=== PATIENT | male | born 1995 | race Caucasian/White ===

== ENCOUNTER 2016-06-17 18:08 | Observation (INO) | payer OTHER ==
[~2016-06-17] VITALS: Ht 177.8 cm; Wt 86.0 kg
[~2016-06-17 18:08] MED LIST: ATARAX PO; BUSPAR30 MG PO; LEXAPRO PO; MELATONIN; MUCINEX D ER T1 EACH PO; SEROQUEL; SEROQUEL XR300 MG PO; STRATTERA80 MG PO; WELLBUTRIN PO
[2016-06-17] MEDS ORDERED: BUSPAR30 MG PO (19:28)
[2016-06-17] MEDS ORDERED: PAXIL10 MG PO (19:28)
[2016-06-17] MEDS ORDERED: CATAPRES0.3 MG PO (19:29)
[2016-06-17] MEDS ORDERED: FOCALIN XR30 MG PO (19:29)
[2016-06-17] MEDS ORDERED: NEURONTIN300 MG PO (19:29)
[2016-06-17] MEDS ORDERED: FOCALIN XR15 M1 PO ×2 (19:29)
[2016-06-17] MEDS ORDERED: CATAPRES0.2 MG PO (19:29)
[2016-06-17] MEDS ORDERED: METHADOSE40 MG PO (19:30)
[2016-06-17 21:31] LABS: EOSINOPHIL (%) 4.9 % (0-5); EOSINOPHIL COUNT 0.5 K/uL (0-0.3); HEMATOCRIT 31.7 % (38.0-50.0); IMMATURE GRANULOCYTE (%) 0.2 % (0.0-0.7); IMMATURE GRANULOCYTE COUNT 0.2 K/uL; LYMPHOCYTE COUNT 2.5 K/uL (1.0-2.8); MCH 28.3 PG (29.0-34.0); MCHC 34.1 G/DL (30.0-36.0); MEAN PLAT.VOLUME 8.9 uM^3 (9.0-12.4); MONOCYTE (%) 9.1 % (3-12); NEUTROPHIL (%) 61.8 % (45-76); NEUTROPHIL COUNT 6.5 K/uL (1.8-6.4); PLATELET COUNT 326 K/uL (156-360); RBC DIS.WIDTH-CV 12.6 % (11.8-14.6); RBC DIS.WIDTH-SD 36.9 % (39-53); RED BLOOD COUNT 3.82 M/uL (4.00-5.50); WHITE BLOOD COUNT 10.4 K/uL (4.1-10.2)
[2016-06-17 21:44] LABS: CHLORIDE 100 mEq/L (99-109); POTASSIUM 3.9 mEq/L (3.7-5.4); SODIUM 135 mEq/L (136-147)
[2016-06-17 21:46] LABS: GLUCOSE 82 mg/dL (70-99)
[2016-06-17 21:48] LABS: ANION GAP 12 MEQ/L (2-14); TOTAL BILIRUBIN 0.4 mg/dL (0.0-1.0)
[2016-06-17 21:50] LABS: ALKALINE PHOSPHATASE 129 IU/L (3-129); GFR ESTIMATE (CALCULATED) > 59 mL/min/
[2016-06-17 21:51] LABS: UREA NITROGEN (BUN) 10 mg/dL (9-23)
[2016-06-17 22:20] LABS: C-REACTIVE PROTEIN < 1.0 MG/L (0-10); SAMPLE HEMOLYSIS CHECK 0; SAMPLE ICTERIC CHECK 0; SAMPLE LIPEMIA CHECK 0
[2016-06-18] MEDS ORDERED: NEURONTIN100 MG PO (00:42)
[2016-06-18] MEDS ORDERED: FLUOXETINE HCL20 MG PO (00:42)
[2016-06-18 00:43] LABS: SERUM ETHYL ALCOHOL < 10 mg/dL
[2016-06-18] MEDS ORDERED: FOCALIN10 MG PO (00:43)
[2016-06-18] MEDS ORDERED: WELLBUTRIN XL150 MG PO (00:43)
[2016-06-18 00:46] LABS: LIPASE 19 U/L (1.0-51.0)
[2016-06-18 02:11] LABS: ADD MIUA? NO; BILIRUBIN NEGATIVE; BLOOD NEGATIVE; COLOR YELLOW ((YELLOW)); GLUCOSE (STRIP) NEGATIVE; KETONES NEGATIVE; LEUKOCYTES NEGATIVE; NITRITE NEGATIVE; PH, URINE 6.5 (5-8); PROTEIN (STRIP) NEGATIVE; SPECIFIC GRAVITY 1.011 (1.000-1.030); UCUL ADDED? NO
[2016-06-18 02:28] LABS: COCAINE PRESUMPTIVE POSITIVE (150 ng/mL); PHENCYCLIDINE NEGATIVE (25 ng/mL); THC CANNABINOIDS NEGATIVE (50 ng/mL)
[2016-06-18 02:29] LABS: ADD MEDTOX COMMENT Y; AMPHETAMINE NEGATIVE (500 ng/mL); BARBITURATES NEGATIVE (200 ng/mL); BENZODIAZEPINES NEGATIVE (150 ng/mL); INTERNAL CONTROLS VALID? YES; METHADONE PRESUMPTIVE POSITIVE (200 ng/mL); METHAMPHETAMINE NEGATIVE (500 ng/mL); OPIATES (MORPHINE) NEGATIVE (100 ng/mL); OXYCODONE NEGATIVE (100 ng/mL); PROPOXYPHENE NEGATIVE (300 ng/mL); TRICYCLIC ANTIDEPRESSANTS NEGATIVE (300 ng/mL)
[2016-06-18 04:28] VITALS: BP 88/52
[2016-06-18 05:33] VITALS: BP 106/58
[2016-06-18 06:20] LABS: EOSINOPHIL (%) 5.1 % (0-5); EOSINOPHIL COUNT 0.4 K/uL (0-0.3); HEMATOCRIT 28.4 % (38.0-50.0); IMMATURE GRANULOCYTE (%) 0.1 % (0.0-0.7); LYMPHOCYTE COUNT 2.3 K/uL (1.0-2.8); MCHC 32.7 G/DL (30.0-36.0); MCV 85.5 FL (86-99); MONOCYTE (%) 12.5 % (3-12); MONOCYTE COUNT 0.9 K/uL (0-0.8); NEUTROPHIL (%) 50.1 % (45-76); NEUTROPHIL COUNT 3.6 K/uL (1.8-6.4); RBC DIS.WIDTH-SD 40.6 % (39-53); RED BLOOD COUNT 3.32 M/uL (4.00-5.50)
[2016-06-18 06:22] LABS: WHITE BLOOD COUNT 7.2 K/uL (4.1-10.2)
[2016-06-18 06:40] LABS: ALKALINE PHOSPHATASE 97 IU/L (3-129); ANION GAP 7 MEQ/L (2-14); CHLORIDE 105 MEQ/L (99-109); GFR ESTIMATE (CALCULATED) > 59 mL/min/; GLUCOSE 96 mg/dL (70-99); POTASSIUM 4.1 MEQ/L (3.7-5.4); SAMPLE HEMOLYSIS CHECK 0; SAMPLE ICTERIC CHECK 0; SAMPLE LIPEMIA CHECK 0; SODIUM 138 MEQ/L (136-147); TOTAL BILIRUBIN 0.4 MG/DL (0.0-1.0); UREA NITROGEN (BUN) 8 mg/dL (9-23)
[2016-06-18 07:39] LABS: MEAN PLAT.VOLUME 9.2 uM^3 (9.0-12.4); PLAT.SUFFICIENCY ADEQUATE
[2016-06-18 07:50] VITALS: BP 110/55
[2016-06-18 07:50] LABS: PLATELET COUNT 222 K/uL (156-360)
[2016-06-18 12:15] VITALS: BP 98/55
[2016-06-18] MEDS ORDERED: KEFLEX500 MG PO ×2 (14:15→14:35)
== END 2016-06-18 17:22 | disposition home or self-care (01) ==
LOC: RME 18:08 → EME 18:08 → EDOF 06-18 01:55 → 5WEST 06-18 02:51
PROVIDERS: Emergency Medicine; Internal Medicine; Physician Assistant
DX: L03.116 Cellulitis of left lower limb (principal); M79.89 Other specified soft tissue disorders; M79.601 Pain in right arm; M79.605 Pain in left leg; W18.39XA Other fall on same level, initial encounter; Y99.0 Civilian activity done for income or pay; F11.20 Opioid dependence, uncomplicated; F14.10 Cocaine abuse, uncomplicated; F39 Unspecified mood [affective] disorder; F17.200 Nicotine dependence, unspecified, uncomplicated
CPT/HCPCS: 76882; 80053; 81003; 83605; 83690; 84999; 85025; 86140; 87040; 93971; 99281; 99285; G0378; G0480; J0696; J1644; J1885; J3370; J7030; J7050